=== PATIENT | female | born 1935 | race Caucasian/White ===

== ENCOUNTER 2020-07-25 20:18 | Emergency (ER) | payer MEDICARE, MEDICAID ==
[2020-07-25] MEDS ORDERED: Morphine 2 MG/ML SYRINGE ONE (21:01)
[2020-07-25] MEDS ORDERED: Ondansetron PF 4 MG/2 ML Vial ONE (21:01)
--- NOTE | 2020-07-25 21:07 | RAD ---
Radiograph left hip 2 views: 07/25/2020 8:56 PM HISTORY: 84-year-old female with acute, traumatic left hip pain and deformity FINDINGS: There is a subcapital femoral neck fracture with superolateral displacement of distal fragment, and f oreshortening. No dislocation. IMPRESSION: Acute, traumatic, displaced subcapital left femoral neck fracture.
[2020-07-25 21:57] LABS: Prothrombin Time 12.8 sec (12.0-14.7)
[2020-07-25 21:58] LABS: PTT 23.1 sec (22.9-36.1)
[2020-07-25 21:59] LABS: Hemoglobin 11.1 g/dL (12.0-16.0); Mean Corpuscular HGB CONC 30.6 g/dL (32.0-36.0); Mean Corpuscular Hemoglobin 25.9 pg (27.0-31.0); Mean Corpuscular Volume 84.6 fL (78.0-98.0); Mean Platelet Volume 8.1 fL (7.4-10.4); Platelet Count 204 thou/uL (130-400); RBC Distribution Width 20.8 % (11.5-14.5); Red Blood Cell (RBC) Count 4.29 mill/uL (4.20-5.40); White Blood Cell (WBC) Count 10.4 thou/uL (4.8-10.8)
[2020-07-25 22:05] LABS: ALT (SGPT) 11 U/L (8-55); AST (SGOT) 16 U/L (5-34); Albumin 3.8 g/dL (3.4-4.8); Alkaline Phosphatase 77 U/L (40-110); Anion Gap 16 mmol/L (10-20); BUN (Urea Nitrogen) 23 mg/dL (9.8-20.1); Bilirubin, Total 0.4 mg/dL (0.2-1.2); Calc. Creatinine Clearance 0 mL/min (70-130); Calcium 8.5 mg/dL (7.8-10.44); Carbon Dioxide 22 mmol/L (23-31); Chloride 107 mmol/L (98-107); Estimated GFR-MDRD 41; Globulin 2.8 g/dL (2.4-3.5); Glucose 166 mg/dL (83-110); Potassium 3.6 mmol/L (3.5-5.1); Protein, Total 6.6 g/dL (6.0-8.3); Sodium 141 mmol/L (136-145)
[2020-07-25 22:14] LABS: #Basophils 0.1 thou/uL (0.0-0.2); #Lymphocytes 0.9 thou/uL (1.20-3.40); #Monocytes 0.5 thou/uL (0.11-0.59); %Basophils 0.6 % (0.0-1.0); %Eosinophils 0.2 % (0.0-10.0); %Lymphocytes 8.6 % (21.0-51.0); %Monocytes 4.8 % (0.0-10.0); %Neutrophils 85.8 % (42.0-75.0); Anisocytosis MODERATE=16-30 cells (100X) (0-5/hpf); Hypochromia SLIGHT = 6-15 cells (100X) (0-5/hpf); MDiff Complete? YES
[2020-07-25 22:15] LABS: Ovalocytes SLIGHT = 2-5 cells (100X) (0-1/hpf); Poikilocytosis SLIGHT = 6-15 cells (100X) (0-5/hpf)
--- NOTE | 2020-07-25 22:27 | RAD ---
RADIOGRAPH CHEST 1 VIEW: DATE: 07/25/2020 HISTORY: 84-year-old female for preoperative clearance FINDINGS: There are no airspace densities, pulmonary edema, pneumothorax, or cardiomegaly. The lateral costophr enic angles are sharp. IMPRESSION: No acute cardiopulmonary findings.
== END 2020-07-25 22:43 | disposition short-term general hospital (02) ==
LOC: MADERS 20:18
DX: S72.012A Unspecified intracapsular fracture of left femur, initial encounter for closed fracture (principal); B35.1 Tinea unguium; I10 Essential (primary) hypertension; W01.0XXA Fall on same level from slipping, tripping and stumbling without subsequent striking against object, initial encounter
CPT/HCPCS: 71045; 80053; 85025; 85610; 85730; 93005; 96374; 96375; J2270; J2405

== ENCOUNTER 2020-09-18 17:57 | Inpatient (IN) | payer MEDICARE, OTHER ==
[2020-09-18] MEDS ORDERED: Acetaminophen 500 MG TAB PO PRN (21:52)
[2020-09-18] MEDS ORDERED: Ondansetron ODT 4 MG TAB PO PRN (22:48)
[2020-09-18] MEDS ORDERED: Acetaminophen 325 MG TAB PO PRN (22:48)
[2020-09-18] MEDS ORDERED: Enoxaparin Sodium 40 MG/0.4 ML SYRINGE SC SCH (23:00)
[2020-09-19] MEDS: Acetaminophen 500 MG TAB PO SCH ×4 (01:31→18:24)
[2020-09-19] MEDS ORDERED: FLU VACC QS2020-21(65YR UP)/PF 240 MCG/0.7 ML SYRINGE IM ONE (09:00)
[2020-09-19] MEDS: Famotidine 20 MG TAB PO SCH ×2 (09:28→20:29)
[2020-09-19] MEDS: Amlodipine 5 MG TAB PO SCH (09:28)
[2020-09-19] MEDS: Vit A,C & E/Lutein/Minerals Tablet PO SCH (09:28)
[2020-09-19] MEDS: Enoxaparin Sodium 40 MG/0.4 ML SYRINGE SC SCH (09:29)
[2020-09-19] MEDS: Calcium Carbonate 500 MG ChewTAB PO PRN ×2 (12:25→18:23)
--- NOTE | 2020-09-19 19:40 | HP ---
PRIMARY CARE PHYSICIAN: Out of town. REASON FOR ADMISSION: For skilled rehabilitation at [facility] due to post operative abdominal ileus after colon cancer with recent right colectomy, and physical deconditioning due to recent left total hip replacement. HISTORY OF PRESENT ILLNESS: Ms. Liang is a pleasant 84-year-old female, who was admitted to [facility] in [place] on September 07, 2020, due to severe deconditioning, abdominal pain, small bowel obstruction, and anemia. The patient had a left hip repair status post a fall on July 26, 2020, and she stated she was home and had poor physical therapy. She has a history of colon cancer and had laparoscopy extended right colectomy performed in [facility] on September 01, 2020. The patient was discharged home with home PT as she opposed to staying in inpatient rehab bed. Her daughter states she was doing poorly upon discharge and she had some confusion, abdominal pain, and deconditioning, so she was sent to [facility] in [place] on September 07, 2020. The patient was admitted in [place] until September 14, 2020, where she was noted to have a partial small-bowel obstruction versus an ileus and she was also noted to have urinary retention and urinary tract infection. Due to partial small-bowel obstruction with possible surgical consult, the decision was made to transfer the patient back to the facility where Surgery was performed in [facility]. She was admitted to [place] on September 14 and subsequently discharged to [facility] in [place] for skilled rehabilitation on September 18. While patient was admitted in [place], she was noted to have elevated troponins and she was seen by Cardiology who did a full workup. The patient denied any chest pain, dyspnea, dizziness, or palpitations. Cardiology cleared the patient and the patient was seen by Dr. Ibrahim, the colorectal surgeon, who repeated x-rays of abdomen and recommended the patient to have mobilization and no need for surgical intervention. The patient was noted to also have severe epigastric pain and epigastric spasms and they recommended continuation of possible rehabilitation until she is strong enough to go home. She is to have further GI workup as an outpatient. During hospitalization, they tried clamping her Winchester and taking it out, but she continued to have urinary retention, so this was left alone. The patient was also noted to have bilateral pleural effusions and mild ascites on chest x-ray and cautious diureses was recommended. For epigastric pain and spasm, GI doctor already recommended the patient to avoid NSAIDs and minimize use of narcotics. The patient during hospitalization in [place] was noted to have 7 mm lytic lesion to the left temporal lobe, but no mental status changes. They recommended further outpatient evaluation. Upon evaluation of the patient today, her daughter Fabiana Castellanos who is her primary home care coordinator was present in the room. The patient continued to complain of epigastric pain and some nausea. She denies any fever. She denies any diarrhea. She states she is passing gas and she has been able to have bowel movements. She denies any chest pain, palpitations, or dizziness. The patient continues to voice that she wants to be discharged home and continue therapy at home. Her daughter and I tried convincing her to stay for the next week for physical therapy to help her gait and recovery process. PAST MEDICAL HISTORY: Colon cancer stage II, status post right hemicolectomy; hypertension. PAST SURGICAL HISTORY: Left hip ORIF on July 26, 2020, laparoscopic hernia repair, colon cancer with right colectomy. FAMILY HISTORY: Significant for hypertension in father and mother. SOCIAL HISTORY: No tobacco use. No alcohol use. No illicit drug use. Patient lives at home with her daughter who takes care of her. CODE STATUS: The patient is a DNR, confirmed by patient and her daughter in the room. ALLERGIES: NO KNOWN DRUG ALLERGIES. REVIEW OF SYSTEMS: GENERAL: Complains of weakness. HEENT: Denies nasal congestion, rhinorrhea. Denies eye pain, vision changes. RESPIRATORY: Patient denies any cough, congestion, shortness of breath. CARDIOVASCULAR: Patient denies any chest pain, palpitations. GASTROINTESTINAL: Patient complains of epigastric pain. Denies any vomiting, diarrhea, or constipation. GENITOURINARY: Patient denies dysuria, polyuria, or hematuria. Patient does have a Winchester catheter in place due to urinary retention. SKIN: Denies any rashes or lesions. MUSCULOSKELETAL: Denies any pain or tenderness. NEUROLOGICAL: Reports weakness. Denies numbness or syncope. PSYCHIATRY: Denies confusion, hallucinations, or delusions. MEDICATIONS: 1. Tylenol 650 q.4 p.r.n. 2. Tylenol 1000 q.6 scheduled. 3. Amlodipine 10 mg daily. 4. Tums 1000 q.4 hours p.r.n. 5. Lovenox 40 subcu daily. 6. Pepcid 20 mg b.i.d. 7. Ocuvite multivitamin one daily. 8. Simethicone 120 p.o. q.4 p.r.n. 9. Tramadol 50 b.i.d. p.r.n. PHYSICAL EXAMINATION: VITAL SIGNS: Temperature 97.4, pulse 90, respirations 18, O2 saturation 98% on room air, blood pressure 128/64. GENERAL: The patient is alert, awake, and oriented x2, in no apparent distress, pleasant. HEENT: Atraumatic, normocephalic. Extraocular muscles intact. Moist oral mucous membranes. NECK: Supple, nontender. No thyromegaly. No JVD. No lymphadenopathy. CARDIOVASCULAR: Regular rate and rhythm. Normal S1, S2. No murmurs. RESPIRATORY: Decreased breath sounds bilaterally. No distress. ABDOMEN: Positive bowel sounds. Healing epigastric incision. Mild tenderness to abdominal area. No guarding. No rebound. GENITOURINARY: Winchester in place. MUSCULOSKELETAL: Normal inspection. NEUROLOGICAL: No mottle or focal deficits. SKIN: Ecchymosis noted to bilateral upper extremities. PSYCHIATRY: Normal affect and mood. Poor judgment and insight. ASSESSMENT: 1. Physical deconditioning. 2. Colon cancer, status post colectomy. 3. Epigastric pain. 4. Abdominal ileus, improving. 5. Anemia. 6. Hypertension. 7. No tobacco use. 8. Newly found lytic Temporal lesion 9. Urinary Retention with Winchester Catheter in place. PLAN: The patient is an 84-year-old female, admitted to [facility] in [facility] for physical deconditioning and we will consult Physical Therapy and Occupational Therapy. We will consult Physical Therapy to help with gait, strengthening, balance, ambulation. We will consult Occupational Therapy to help with activities of daily living prior to discharge back to home. We will resume home medications. We will monitor the patient closely for any hemodynamic instability. We will place the patient right now on a full-liquid diet due to epigastric pain and spasm. We will monitor closely. We will place the patient on Lovenox for DVT prophylaxis and Pepcid for GI prophylaxis. We will keep winchester for now and attempt bladder training as she progresses. ESTIMATED LENGTH OF STAY: 1 to 2 weeks. DISCHARGE DISPOSITION: Back to her home. TIME SPENT: Length of time use to prepare this H and P was greater than 45 minutes. Job ID: [id number] MTDD
[2020-09-20] MEDS: Acetaminophen 500 MG TAB PO SCH ×4 (00:01→17:31)
[2020-09-20] MEDS: Simethicone Chewable 80 MG TAB PO PRN ×3 (03:42→17:17)
[2020-09-20] MEDS: Enoxaparin Sodium 40 MG/0.4 ML SYRINGE SC SCH (08:39)
[2020-09-20] MEDS: Famotidine 20 MG TAB PO SCH ×2 (08:39→20:05)
[2020-09-20] MEDS: Amlodipine 5 MG TAB PO SCH (08:40)
[2020-09-20] MEDS: Vit A,C & E/Lutein/Minerals Tablet PO SCH (08:48)
[2020-09-21] MEDS: Acetaminophen 500 MG TAB PO SCH ×5 (00:21→23:45)
[2020-09-21] MEDS: Calcium Carbonate 500 MG ChewTAB PO PRN (08:22)
[2020-09-21] MEDS: Amlodipine 5 MG TAB PO SCH (08:25)
[2020-09-21] MEDS: Famotidine 20 MG TAB PO SCH ×2 (08:25→21:01)
[2020-09-21] MEDS: Vit A,C & E/Lutein/Minerals Tablet PO SCH (08:25)
[2020-09-21] MEDS: Enoxaparin Sodium 40 MG/0.4 ML SYRINGE SC SCH (08:26)
[2020-09-21] MEDS: Sucralfate 1 GM/10 ML UDCUP PO SCH (21:01)
[2020-09-21] MEDS: Simethicone Chewable 80 MG TAB PO PRN (21:02)
[2020-09-22] MEDS: Acetaminophen 500 MG TAB PO SCH ×4 (05:24→23:30)
[2020-09-22] MEDS: Calcium Carbonate 500 MG ChewTAB PO PRN (05:43)
[2020-09-22] MEDS: Amlodipine 5 MG TAB PO SCH (09:24)
[2020-09-22] MEDS: Enoxaparin Sodium 40 MG/0.4 ML SYRINGE SC SCH (09:24)
[2020-09-22] MEDS: Vit A,C & E/Lutein/Minerals Tablet PO SCH (09:24)
[2020-09-22] MEDS: Famotidine 20 MG TAB PO SCH ×2 (09:24→19:42)
[2020-09-22] MEDS: Sucralfate 1 GM/10 ML UDCUP PO SCH ×2 (09:25→19:42)
[2020-09-23] MEDS: Acetaminophen 500 MG TAB PO SCH ×4 (05:27→22:21)
[2020-09-23] MEDS: Vit A,C & E/Lutein/Minerals Tablet PO SCH (07:50)
[2020-09-23] MEDS: Famotidine 20 MG TAB PO SCH ×2 (07:50→20:09)
[2020-09-23] MEDS: Sucralfate 1 GM/10 ML UDCUP PO SCH ×2 (07:50→20:09)
[2020-09-23] MEDS: Enoxaparin Sodium 40 MG/0.4 ML SYRINGE SC SCH (07:50)
[2020-09-23] MEDS: Amlodipine 5 MG TAB PO SCH (07:50)
[2020-09-23] MEDS: Calcium Carbonate 500 MG ChewTAB PO PRN (21:35)
[2020-09-23] MEDS: Simethicone Chewable 80 MG TAB PO PRN (22:55)
[2020-09-24] MEDS: traMADol HCl 50 MG TAB PO PRN (00:15)
[2020-09-24] MEDS: Calcium Carbonate 500 MG ChewTAB PO PRN (02:56)
[2020-09-24] MEDS: Acetaminophen 500 MG TAB PO SCH ×3 (05:38→16:48)
[2020-09-24] MEDS: Famotidine 20 MG TAB PO SCH ×2 (07:44→20:41)
[2020-09-24] MEDS: Amlodipine 5 MG TAB PO SCH (07:44)
[2020-09-24] MEDS: Vit A,C & E/Lutein/Minerals Tablet PO SCH (07:44)
[2020-09-24] MEDS: Sucralfate 1 GM/10 ML UDCUP PO SCH ×2 (07:44→20:42)
[2020-09-24] MEDS: Enoxaparin Sodium 40 MG/0.4 ML SYRINGE SC SCH (07:44)
[2020-09-25] MEDS: Acetaminophen 500 MG TAB PO SCH ×5 (00:05→22:00)
[2020-09-25] MEDS: Famotidine 20 MG TAB PO SCH ×2 (07:51→20:12)
[2020-09-25] MEDS: Enoxaparin Sodium 40 MG/0.4 ML SYRINGE SC SCH (07:51)
[2020-09-25] MEDS: Calcium Carbonate 500 MG ChewTAB PO PRN ×4 (07:52→22:59)
[2020-09-25] MEDS: Amlodipine 5 MG TAB PO SCH (07:52)
[2020-09-25] MEDS: Vit A,C & E/Lutein/Minerals Tablet PO SCH (07:52)
[2020-09-25] MEDS: Sucralfate 1 GM/10 ML UDCUP PO SCH ×2 (07:56→20:10)
[2020-09-25] MEDS: Hyoscyamine Sulfate SL 0.125 mg Tablet SL PRN ×3 (12:05→20:48)
[2020-09-25] MEDS: traMADol HCl 50 MG TAB PO PRN (22:54)
[2020-09-26] MEDS: Hyoscyamine Sulfate SL 0.125 mg Tablet SL PRN ×3 (02:00→13:45)
[2020-09-26] MEDS: Simethicone Chewable 80 MG TAB PO PRN ×2 (02:00→12:14)
[2020-09-26] MEDS: Acetaminophen 500 MG TAB PO SCH ×4 (04:53→22:50)
[2020-09-26] MEDS: Famotidine 20 MG TAB PO SCH ×2 (09:10→21:00)
[2020-09-26] MEDS: Vit A,C & E/Lutein/Minerals Tablet PO SCH (09:10)
[2020-09-26] MEDS: Sucralfate 1 GM/10 ML UDCUP PO SCH ×2 (09:10→21:00)
[2020-09-26] MEDS: Amlodipine 5 MG TAB PO SCH (09:10)
[2020-09-26] MEDS: Enoxaparin Sodium 40 MG/0.4 ML SYRINGE SC SCH (09:10)
[2020-09-26] MEDS: Calcium Carbonate 500 MG ChewTAB PO PRN ×2 (09:11→17:08)
[2020-09-26] MEDS: traMADol HCl 50 MG TAB PO PRN (13:44)
[2020-09-27] MEDS: Acetaminophen 500 MG TAB PO SCH ×4 (04:51→22:58)
[2020-09-27] MEDS: Vit A,C & E/Lutein/Minerals Tablet PO SCH (08:30)
[2020-09-27] MEDS: Famotidine 20 MG TAB PO SCH ×2 (08:30→20:53)
[2020-09-27] MEDS: Amlodipine 5 MG TAB PO SCH (08:30)
[2020-09-27] MEDS: Enoxaparin Sodium 40 MG/0.4 ML SYRINGE SC SCH (08:30)
[2020-09-27] MEDS: Sucralfate 1 GM/10 ML UDCUP PO SCH ×2 (08:30→20:53)
[2020-09-27] MEDS: Calcium Carbonate 500 MG ChewTAB PO PRN ×2 (08:30→17:39)
[2020-09-28] MEDS: Acetaminophen 500 MG TAB PO SCH ×4 (05:18→22:19)
[2020-09-28] MEDS: Enoxaparin Sodium 40 MG/0.4 ML SYRINGE SC SCH (07:56)
[2020-09-28] MEDS: Vit A,C & E/Lutein/Minerals Tablet PO SCH (07:56)
[2020-09-28] MEDS: Famotidine 20 MG TAB PO SCH ×2 (07:56→20:42)
[2020-09-28] MEDS: Amlodipine 5 MG TAB PO SCH (07:56)
[2020-09-28] MEDS: Sucralfate 1 GM/10 ML UDCUP PO SCH ×2 (07:56→20:42)
[2020-09-28] MEDS: Simethicone Chewable 80 MG TAB PO PRN (20:45)
[2020-09-29] MEDS: Acetaminophen 500 MG TAB PO SCH ×4 (04:50→22:55)
[2020-09-29] MEDS: Amlodipine 5 MG TAB PO SCH (08:08)
[2020-09-29] MEDS: Famotidine 20 MG TAB PO SCH ×2 (08:08→20:08)
[2020-09-29] MEDS: Sucralfate 1 GM/10 ML UDCUP PO SCH ×2 (08:09→20:13)
[2020-09-29] MEDS: Enoxaparin Sodium 40 MG/0.4 ML SYRINGE SC SCH (08:09)
[2020-09-29] MEDS: Vit A,C & E/Lutein/Minerals Tablet PO SCH (08:09)
[2020-09-29] MEDS: Hyoscyamine Sulfate SL 0.125 mg Tablet SL PRN (12:04)
[2020-09-29] MEDS: Calcium Carbonate 500 MG ChewTAB PO PRN (13:18)
[2020-09-29] MEDS: Nystatin 500,000 UNITS/5 ML UDCUP SSW SCH ×2 (16:49→20:10)
[2020-09-29 19:29] VITALS: BMI 21.4
[2020-09-30] MEDS: Acetaminophen 500 MG TAB PO SCH ×4 (05:24→22:42)
[2020-09-30] MEDS: Calcium Carbonate 500 MG ChewTAB PO PRN ×2 (05:46→11:41)
[2020-09-30] MEDS: Amlodipine 5 MG TAB PO SCH (09:11)
[2020-09-30] MEDS: Vit A,C & E/Lutein/Minerals Tablet PO SCH (09:11)
[2020-09-30] MEDS: Famotidine 20 MG TAB PO SCH ×2 (09:11→20:04)
[2020-09-30] MEDS: Sucralfate 1 GM/10 ML UDCUP PO SCH ×2 (09:11→20:05)
[2020-09-30] MEDS: Enoxaparin Sodium 40 MG/0.4 ML SYRINGE SC SCH (09:11)
[2020-09-30] MEDS: Nystatin 500,000 UNITS/5 ML UDCUP SSW SCH ×4 (09:11→20:05)
[2020-09-30] MEDS: traMADol HCl 50 MG TAB PO PRN (11:41)
[2020-10-01] MEDS: Acetaminophen 500 MG TAB PO SCH ×4 (05:13→23:16)
[2020-10-01] MEDS: traMADol HCl 50 MG TAB PO PRN (09:13)
[2020-10-01] MEDS: Famotidine 20 MG TAB PO SCH ×2 (09:14→20:29)
[2020-10-01] MEDS: Hyoscyamine Sulfate SL 0.125 mg Tablet SL PRN (09:14)
[2020-10-01] MEDS: Vit A,C & E/Lutein/Minerals Tablet PO SCH (09:14)
[2020-10-01] MEDS: Amlodipine 5 MG TAB PO SCH (09:14)
[2020-10-01] MEDS: Sucralfate 1 GM/10 ML UDCUP PO SCH ×2 (09:15→20:29)
[2020-10-01] MEDS: Nystatin 500,000 UNITS/5 ML UDCUP SSW SCH ×4 (09:15→20:30)
[2020-10-01] MEDS: Enoxaparin Sodium 40 MG/0.4 ML SYRINGE SC SCH (09:17)
[2020-10-01] MEDS: Calcium Carbonate 500 MG ChewTAB PO PRN (10:46)
[2020-10-01] MEDS: Simethicone Chewable 80 MG TAB PO PRN (20:30)
[2020-10-02] MEDS: Acetaminophen 500 MG TAB PO SCH ×3 (05:33→18:05)
[2020-10-02] MEDS: Famotidine 20 MG TAB PO SCH (08:18)
[2020-10-02] MEDS: Sucralfate 1 GM/10 ML UDCUP PO SCH (08:18)
[2020-10-02] MEDS: Vit A,C & E/Lutein/Minerals Tablet PO SCH (08:18)
[2020-10-02] MEDS: Enoxaparin Sodium 40 MG/0.4 ML SYRINGE SC SCH (08:18)
[2020-10-02] MEDS: Nystatin 500,000 UNITS/5 ML UDCUP SSW SCH ×3 (08:18→18:05)
[2020-10-02] MEDS: Amlodipine 5 MG TAB PO SCH (08:20)
[2020-10-02] MEDS: Simethicone Chewable 80 MG TAB PO PRN (08:31)
[2020-10-02 08:54] VITALS: TEMP 97.2
[2020-10-02 11:24] VITALS: BP 106/61
--- NOTE | 2020-10-06 07:01 | DIS ---
DATE OF ADMISSION: 09/18/2020 DATE OF DISCHARGE: 10/02/2020 DISCHARGING PHYSICIAN: Kp Lancaster MD PRIMARY CARE PHYSICIAN: Dr. Wilfredo Park DISCHARGE DISPOSITION: Back to home with her daughter. DISCHARGE ACTIVITY: The patient is to follow up with primary care physician within 1 week. The patient is to follow up with urologist within 1 week. The patient to follow up with gastrointestinal colorectal surgeon within 1 week. [facility] to start physical therapy, occupational therapy and nursing care with Huertas catheter care. DISCHARGE MEDICATIONS: 1. Sucralfate 1 g b.i.d. 2. Hyoscyamine 0.125 mg sublingual q.4 hours p.r.n. 3. Simethicone q.i.d. p.r.n. 4. Pepcid 20 b.i.d. 5. Norvasc 10 mg daily. 6. Tylenol 1000 q.6 hours. 7. Tramadol 50 b.i.d. p.r.n. DISCHARGE DIAGNOSES: 1. Physical deconditioning. 2. Colon cancer, status post hemicolectomy. 3. Postoperative abdominal ileus. 4. Hypertension. 5. Urinary retention. 6. Gait instability. BRIEF HOSPITAL COURSE: Ms. Liang is an 84-year-old pleasant female who was admitted to [facility] in [facility] on September 18, 2020, for skilled rehabilitation. The patient recently had left total hip replacement on July 26, 2020, and per daughter, she had very poor physical therapy at home. Family and the patient decided to have laparoscopic right colectomy on September 01, 2020 also, and the patient declined inpatient rehab then, so she was discharged home. Per daughter, when the patient got home, she was very weak. She continued to complain of abdominal pain and she had some confusion, so she was transferred to [facility] in [place] on September 07, 2020. The patient was admitted there and during the admission, she was noted to have a possible small bowel obstruction and postop ileus and she was transferred back to [facility] on September 14, 2020. Over at [place], they noted elevated troponins for which she had a cardiac workup and that was negative. The colorectal surgeon, Dr. Ibrahim, repeated x-ray and recommended no operative intervention needed and the patient to just continue physical therapy to help with the epigastric pain. The patient during the hospitalization was noted to have urinary retention and UTI which she was treated for and she had a Huertas catheter in place. Due to severe deconditioning, the patient was transferred here to [facility] for skilled rehabilitation. Throughout her hospitalization here, she continued to complain of epigastric pain. The patient had bowel movement. She was passing gas, but the epigastric pain never resolved. Initially, she was placed on a clear liquid diet and advanced to full liquid and then regular diet. This did not help. She was able to participate with physical therapy very minimally and she was not improving, so the decision was made to discharge the patient back to her home. Family was given the option of possibly usp for continued therapy, hospice care or home health and for now the patient and her daughter decided to be discharged home with home health instead of hospice or usp. The patient was discharged home on October 02 with her daughter in a stable condition and she will follow up as an outpatient with the urologist, colorectal surgeon and primary care physician. On the day of discharge, the vital signs were temperature 97.2, respirations 18, blood pressure 106/61, pulse 77, O2 on room air 95%. Total time used to complete and prepare for this discharge summary was greater than 45 minutes. Job ID: [id number]
== END 2020-10-02 18:15 | disposition home health service (06) | DRG 948 ==
LOC: MADMS 18:56
PROVIDERS: ADMIT Family Medicine; ATTEND Family Medicine
DX: R53.81 Other malaise (principal); K56.7 Ileus, unspecified; J90 Pleural effusion, not elsewhere classified; R18.8 Other ascites; R33.9 Retention of urine, unspecified; I10 Essential (primary) hypertension; Z96.642 Presence of left artificial hip joint; Z66 Do not resuscitate; M89.9 Disorder of bone, unspecified; D64.9 Anemia, unspecified; Z90.49 Acquired absence of other specified parts of digestive tract; Z47.1 Aftercare following joint replacement surgery; Z85.038 Personal history of other malignant neoplasm of large intestine; Z79.899 Other long term (current) drug therapy; Z79.01 Long term (current) use of anticoagulants
CPT/HCPCS: 90471; 90662; 90732; G0008; G0009; J1650